=== PATIENT | female | born 1955 | race African-American/Black ===

== ENCOUNTER 2017-09-25 14:00 | Emergency (ER) | payer MEDICAID ==
[~2017-09-25] VITALS: Ht 152.4 cm; Wt 65.8 kg
[2017-09-25 14:38] VITALS: BP 134/77
== END 2017-09-25 14:54 | disposition home or self-care (01) ==
LOC: ER 14:03
DX: H66.3X1 Other chronic suppurative otitis media, right ear (principal); E11.9 Type 2 diabetes mellitus without complications; E78.5 Hyperlipidemia, unspecified; F17.210 Nicotine dependence, cigarettes, uncomplicated

== ENCOUNTER 2017-10-29 10:47 | Emergency (ER) | payer MEDICAID ==
[~2017-10-29] VITALS: Ht 154.9 cm; Wt 65.8 kg
[2017-10-29 13:30] VITALS: BP 127/85
== END 2017-10-29 14:07 | disposition home or self-care (01) ==
LOC: ER 10:47
DX: E11.9 Type 2 diabetes mellitus without complications (principal); Z76.0 Encounter for issue of repeat prescription; F17.210 Nicotine dependence, cigarettes, uncomplicated

== ENCOUNTER → 2017-12-05 | Outpatient (CLI) | payer MEDICAID ==
[2017-12-05 11:22] LABS: Basophils # (auto) 0 uL; Basophils % (auto) 0.6 % (0.0-2.0); Eosinophils # (auto) 0.1 uL; Eosinophils % (auto) 2.4 % (0.0-7.0); Hematocrit 38.3 % (36.0-46.0); Hemoglobin 12.8 g/dL (12.2-16.2); Lymphocytes # (auto) 1.9 uL; Lymphocytes % (auto) 43.2 % (10.0-50.0); Mean Corpuscular Hemoglobin 29.7 pg (28.0-32.0); Mean Corpuscular Hgb Conc. 33.3 g/dL (32.0-36.0); Mean Corpuscular Volume 89.1 fL (80.0-100.0); Monocytes # (auto) 0.4 uL; Monocytes % (auto) 9.3 % (0.0-12.0); Neutrophils # (auto) 1.9 uL; Neutrophils % (auto) 44.5 % (37.0-80.0); Platelet Count (auto) 293 10^3/uL (140-450); Red Cell Distribution Width 14.4 % (11.8-14.3); White Blood Cell 4.3 10^3/uL (4.4-10.8)
[2017-12-05 11:31] LABS: Urine Bacteria NONE SEEN /hpf (None Seen); Urine Blood Negative /uL (Negative); Urine Mucus FEW (None Seen); Urine Specific Gravity 1.013 (1.001-1.035); Urine WBC 1 /hpf (0 - 5)
[2017-12-05 12:34] LABS: Free T4 (Free Thyroxine) 1.17 ng/dL (0.89-1.76)
[2017-12-05 13:08] LABS: Albumin 3.5 g/dL (3.4-5.0); BUN/Creatinine Ratio 17.1; Bilirubin, Total 0.3 mg/dL (0.2-1.0); Calcium 9.2 mg/dL (8.5-10.1); Potassium 3.8 mmol/L (3.5-5.1); Total Protein 7.5 g/dL (6.4-8.2)
== END | disposition home or self-care (01) ==
LOC: LAB 10:40
PROVIDERS: ATTEND Internal Medicine
DX: E11.9 Type 2 diabetes mellitus without complications (principal); I10 Essential (primary) hypertension; M25.50 Pain in unspecified joint
CPT/HCPCS: 36415; 80053; 80061; 81001; 82043; 82607; 83036; 84439; 84443; 85025; 85652

== ENCOUNTER 2019-01-24 15:35 | Emergency (ER) | payer MEDICAID ==
[~2019-01-24] VITALS: Ht 160 cm; Wt 61.2 kg
[2019-01-24 16:49] VITALS: BP 143/76
[2019-01-24] MEDS: cefTRIAXone SOD 1,000 MG VL IM ONE (17:36)
[2019-01-24] MEDS: LIDOCAINE 2% (LOCAL ANESTH.) PF 5ml SDV ONE (17:37)
[2019-01-24] MEDS: LIDOCAINE 1% HCL (LOCAL ANESTH.) INJ 20ML MDV IJ ONE (17:38)
== END 2019-01-24 18:00 | disposition home or self-care (01) ==
LOC: ER 15:35
DX: L03.90 Cellulitis, unspecified (principal); E11.9 Type 2 diabetes mellitus without complications; E78.5 Hyperlipidemia, unspecified; F17.210 Nicotine dependence, cigarettes, uncomplicated
CPT/HCPCS: 82962; 96372; 99283; J0696; J2001